=== PATIENT | female | born 1970 | race Caucasian/White ===

== ENCOUNTER 2021-02-28 09:56 | Inpatient (IN) | payer OTHER ==
[2021-02-28 11:52] VITALS: BMI 31.8
[2021-02-28] MEDS ORDERED: BISMUTH SUBSALICYLATE 262 MG/15 ML BTL PO PRN (13:34)
[2021-02-28] MEDS ORDERED: MAGNESIUM CITRATE 300 ML BOTTLE PO PRN (13:34)
[2021-02-28] MEDS ORDERED: MAG HYDROX/AL HYDROX/SIMETH 30 ML UNIT-DOSE CUP PO PRN (13:34)
[2021-02-28] MEDS ORDERED: NICOTINE POLACRILEX 2 MG GUM BUC PRN (13:34)
[2021-02-28] MEDS ORDERED: MENTHOL/PHENOL 1 EACH UD MM PRN (13:34)
[2021-02-28] MEDS ORDERED: IBUPROFEN 400 MG TABLET (FP) PO PRN (13:34)
[2021-02-28] MEDS ORDERED: ACETAMINOPHEN 325 MG TABLET (FP) PO PRN ×2 (13:34)
[2021-02-28] MEDS ORDERED: MAGNESIUM HYDROX 2400MG/30ML ORAL SUSPENSION 30 ML CUP PO PRN (13:34)
[2021-02-28] MEDS ORDERED: ONDANSETRON *ODT* 4 MG TABLET SL PRN (13:34)
[2021-02-28] MEDS: hydrOXYzine PAMOATE 25 MG CAPSULE (FP) PO SCH ×3 (14:41→22:22)
[2021-02-28] MEDS: METHOCARBAMOL 500 MG TABLET PO PRN ×2 (14:41→22:23)
[2021-02-28] MEDS: PRENATAL VITAMINS W/ FOLIC ACID TABLET (FP) PO SCH (14:41)
[2021-02-28] MEDS: NICOTINE 7 MG/24 HOURS TOPICAL PATCH TD SCH (14:42)
[2021-02-28 15:50] LABS: HEMATOCRIT 38.7 % (32.4-45.2); HEMOGLOBIN 13.1 GM/dL (10.7-15.3); MCH 30.7 pg (25.7-33.7); MCHC 33.7 g/dl (32.0-36.0); MEAN CELL VOLUME 91.1 fl (80-96); MEAN PLT VOLUME 8.9 fl (7.5-11.1); PLATELET COUNT 350 10^3/uL (134-434); RBC 4.25 M/mm3 (3.60-5.2); RDW 15.5 % (11.6-15.6)
[2021-02-28 16:05] LABS: ALBUMIN 3.2 g/dl (3.4-5.0); BLOOD UREA NITROGEN 4.4 mg/dL (7-18); CALCIUM 9.1 mg/dL (8.5-10.1)
[2021-02-28 16:08] LABS: CREATININE 0.9 mg/dL (0.55-1.3)
[2021-02-28 16:12] LABS: TOT PROT 7.2 g/dl (6.4-8.2)
[2021-02-28 16:13] LABS: BILIRUBIN,TOTAL 0.3 mg/dL (0.2-1)
[2021-02-28 16:54] LABS: HIV INTERPRETATION NEGATIVE (NEGATIVE)
[2021-02-28] MEDS: traZODone HCL 50 MG TABLET (FP) PO SCH (22:22)
[2021-02-28] MEDS: MELATONIN 5 MG TABLETS PO SCH (22:22)
[2021-02-28] MEDS: THIAMINE HCL 100 MG TABLET (FP) PO SCH (22:23)
[2021-03-01] MEDS: hydrOXYzine PAMOATE 25 MG CAPSULE (FP) PO SCH ×5 (07:49→22:45)
[2021-03-01] MEDS ORDERED: diazePAM 5 MG TABLET PO PRN (10:16)
[2021-03-01] MEDS: HYDROXYCHLOROQUINE SO4 200 MG TABLET (FP) PO SCH (10:29)
[2021-03-01] MEDS: PRENATAL VITAMINS W/ FOLIC ACID TABLET (FP) PO SCH (10:29)
[2021-03-01] MEDS: METHOCARBAMOL 500 MG TABLET PO PRN (10:29)
[2021-03-01] MEDS: diazePAM 5 MG TABLET PO SCH ×3 (10:30→22:42)
[2021-03-01] MEDS: NICOTINE 7 MG/24 HOURS TOPICAL PATCH TD SCH (10:30)
[2021-03-01] MEDS: LITHIUM CARBONATE 300 MG CAPSULE PO SCH (22:41)
[2021-03-01] MEDS: MELATONIN 5 MG TABLETS PO SCH (22:41)
[2021-03-01] MEDS: traZODone HCL 50 MG TABLET (FP) PO SCH (22:42)
[2021-03-01] MEDS: THIAMINE HCL 100 MG TABLET (FP) PO SCH (22:42)
[2021-03-02] MEDS: hydrOXYzine PAMOATE 25 MG CAPSULE (FP) PO SCH ×5 (05:54→22:21)
[2021-03-02] MEDS: diazePAM 5 MG TABLET PO SCH ×3 (05:54→22:21)
[2021-03-02] MEDS: PRENATAL VITAMINS W/ FOLIC ACID TABLET (FP) PO SCH (10:15)
[2021-03-02] MEDS: LITHIUM CARBONATE 300 MG CAPSULE PO SCH ×2 (10:15→22:21)
[2021-03-02] MEDS: HYDROXYCHLOROQUINE SO4 200 MG TABLET (FP) PO SCH (10:16)
[2021-03-02] MEDS: NICOTINE 7 MG/24 HOURS TOPICAL PATCH TD SCH (10:16)
[2021-03-02] MEDS: METHOCARBAMOL 500 MG TABLET PO PRN (11:38)
[2021-03-02] MEDS: MELATONIN 5 MG TABLETS PO SCH (22:21)
[2021-03-02] MEDS: traZODone HCL 50 MG TABLET (FP) PO SCH (22:21)
[2021-03-02] MEDS: THIAMINE HCL 100 MG TABLET (FP) PO SCH (22:22)
[2021-03-03] MEDS: hydrOXYzine PAMOATE 25 MG CAPSULE (FP) PO SCH ×5 (06:12→22:19)
[2021-03-03] MEDS: diazePAM 5 MG TABLET PO SCH ×2 (06:12→18:17)
[2021-03-03] MEDS: PRENATAL VITAMINS W/ FOLIC ACID TABLET (FP) PO SCH (10:35)
[2021-03-03] MEDS: LITHIUM CARBONATE 300 MG CAPSULE PO SCH ×2 (10:35→22:19)
[2021-03-03] MEDS: NICOTINE 7 MG/24 HOURS TOPICAL PATCH TD SCH (10:35)
[2021-03-03] MEDS: METHOCARBAMOL 500 MG TABLET PO PRN (10:35)
[2021-03-03] MEDS: HYDROXYCHLOROQUINE SO4 200 MG TABLET (FP) PO SCH (10:36)
[2021-03-03] MEDS: traZODone HCL 50 MG TABLET (FP) PO SCH (22:19)
[2021-03-03] MEDS: MELATONIN 5 MG TABLETS PO SCH (22:19)
[2021-03-03] MEDS: THIAMINE HCL 100 MG TABLET (FP) PO SCH (22:19)
[2021-03-04] MEDS: hydrOXYzine PAMOATE 25 MG CAPSULE (FP) PO SCH ×2 (05:58→10:30)
[2021-03-04] MEDS ORDERED: diazePAM 5 MG TABLET PO ONE (06:00)
[2021-03-04 10:09] VITALS: BP 121/78; PULSE 65; TEMP 97.7
[2021-03-04] MEDS: NICOTINE 7 MG/24 HOURS TOPICAL PATCH TD SCH (10:29)
[2021-03-04] MEDS: HYDROXYCHLOROQUINE SO4 200 MG TABLET (FP) PO SCH (10:29)
[2021-03-04] MEDS: LITHIUM CARBONATE 300 MG CAPSULE PO SCH (10:29)
[2021-03-04] MEDS: PRENATAL VITAMINS W/ FOLIC ACID TABLET (FP) PO SCH (10:30)
== END 2021-03-04 11:15 | disposition home or self-care (01) | DRG 897 ==
LOC: YASAS 09:56 → UNDOADMIN 12:46 → Y6N 12:46
PROVIDERS: ADMIT Allergy & Immunology; ATTEND Allergy & Immunology
PROC: HZ2ZZZZ Detoxification Services for Substance Abuse Treatment (ICD-10-PCS; principal; 2021-02-28)
DX: F10.230 Alcohol dependence with withdrawal, uncomplicated (principal); F12.20 Cannabis dependence, uncomplicated; F17.290 Nicotine dependence, other tobacco product, uncomplicated; F32.9 Major depressive disorder, single episode, unspecified; F19.24 Other psychoactive substance dependence with psychoactive substance-induced mood disorder; G47.00 Insomnia, unspecified; M32.9 Systemic lupus erythematosus, unspecified
CPT/HCPCS: 36415; 80053; 80178; 81025; 85027; 86780; 87389; 93005; 93010; C9803; U0003; U0005